=== PATIENT | female | born 1960 | race Caucasian/White ===

== ENCOUNTER → 2016-03-21 | Outpatient (CLI) | payer BC ==
--- OUTSIDE RECORDS SUMMARY | 2016-03-21 07:28 | XMS REPORT | Continuity of Care Document ---
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 If you do not see the information that you expected, contact Release of Information in the Health Information Management department at [phone] for further assistance in locating additional records.[facility] Active Allergies and Adverse Reactions Allergen Noted Date Severity Reactions Comments Codeine 09/14/2013 NAUSEA AND VOMITING Current Medications Prescription Sig. Disp. Refills Start End Date Status Date cyclobenzaprine Take 1 Tab by mouth at 10 Tab 0 09/15/19 Active (FLEXERIL) 10 mg tablet bedtime as needed for 14 Muscle Cramps. Active Problems No known active problems Social History Tobacco Use Types Packs/Day Years Used Date Never Smoker Last Filed Vital Signs Vital Sign Reading Time Taken Blood Pressure 110/60 09/14/2013 2:24 PM CDT Pulse 70 09/14/2013 2:24 PM CDT Temperature 36.8 C (98.3 F) 09/14/2013 2:24 PM CDT Respiratory Rate 18 09/14/2013 2:24 PM CDT Height 1.778 m (5' 10") 09/14/2013 2:24 PM CDT Weight 64.864 kg (143 lb) 09/14/2013 2:24 PM CDT Body Mass Index 20.52 09/14/2013 2:24 PM CDT Oxygen Saturation - - Plan of Care Health Maintenance Due Date Last Done Comments Physical (Comprehensive) 1969 Exam Pertussis Vaccine 1973 Tetanus Vaccine 1979 Cervical Cancer Screening 1983 Breast Cancer Screening 2002 Colorectal Cancer 2012 Screening Influenza Vaccine 10/22/2015 Results from Last 3 Months Not on file
--- NOTE | 2016-03-21 16:44 | Diagnostic Imaging Report ---
Bilateral screening mammogram. The current study was also evaluated with a Computer Aided Detection (CAD) system. INDICATION: Screening. No current complaints stated on the questionnaire. COMPARISON: 06/20/2014. FINDINGS: The breasts are composed of extremely dense parenchyma which may decrease mammographic sensitivity. No developing mass or suspicious cluster of calcification identified. Allowing for technique and positional differences, no suspicious change is seen. IMPRESSION: Dense breasts with no definite change. ACR BI-RADS Category 2: Benign findings. Result letter will be mailed to the patient. Note: At least 10% of breast cancer is not imaged by mammography. Dictated by: Dictated on workstation # [id number]
== END ==
LOC: RAD 07:25
PROVIDERS: ATTEND Obstetrics & Gynecology
DX: Z12.31 Encounter for screening mammogram for malignant neoplasm of breast (principal)

== ENCOUNTER → 2016-07-04 | Outpatient (CLI) | payer BC ==
--- NOTE | 2016-07-04 13:50 | Diagnostic Imaging Report ---
EXAMINATION: Three views of the right hand. INDICATION: Right hand and wrist pain. FINDINGS: No fracture, dislocation, or radiopaque foreign body seen. Joint alignment is satisfactory. No radiopaque foreign body. IMPRESSION: Unremarkable exam. Dictated by: Dictated on workstation # [id number]
--- NOTE | 2016-07-04 18:22 | Diagnostic Imaging Report ---
EXAMINATION: Three views of the right wrist. INDICATION: Pain and swelling. FINDINGS: There is no fracture, dislocation, or radiopaque foreign body. There is question of minimal widening of the scapholunate interval without significant subluxation or dislocation. No abnormal arthritic changes seen. 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 No fracture seen. Dictated by: Dictated on workstation # [id number]
== END ==
LOC: RAD 11:52
PROVIDERS: ATTEND Nurse Practitioner Family
DX: M79.641 Pain in right hand (principal); M25.531 Pain in right wrist; R22.31 Localized swelling, mass and lump, right upper limb; M25.431 Effusion, right wrist
CPT/HCPCS: 73110; 73130

== ENCOUNTER → 2017-05-18 | Outpatient (CLI) | payer BC ==
--- NOTE | 2017-05-18 10:38 | Diagnostic Imaging Report ---
INDICATION: Routine screening. COMPARISON: 03/21/2016 and 06/20/2014. TECHNIQUE: Screening digital mammography was performed bilaterally with a Computer Aided Detection (CAD) system. FINDINGS: Both breasts are heterogeneously dense, limiting the sensitivity of mammography. The parenchymal pattern is stable. No dominant mass or malignant appearing microcalcifications are seen. The axillae are unremarkable. IMPRESSION: No mammographic features suspicious for malignancy are identified. ACR BI-RADS Category 1: Negative. Result letter will be mailed to the patient. Note: At least 10% of breast cancer is not imaged by mammography. Dictated by: Dictated on workstation # [id number]
== END ==
LOC: RAD 07:17
PROVIDERS: ATTEND Obstetrics & Gynecology
DX: Z12.31 Encounter for screening mammogram for malignant neoplasm of breast (principal)
CPT/HCPCS: 77067

== ENCOUNTER → 2018-06-15 | Outpatient (CLI) | payer BC ==
--- NOTE | 2018-06-18 11:38 | Diagnostic Imaging Report ---
Indication: Screening. The current study was also evaluated with a Computer Aided Detection (CAD) system. 3-D tomosynthesis was also performed and reviewed. Comparison made with prior examination from 05/18/2017, 03/21/2016 and 06/20/2014. 3-D tomosynthesis was performed and reviewed. FINDINGS: The fibroglandular tissue is heterogeneously dense bilaterally. There is no dominant mass, spiculated lesion or suspicious calcification identified. The skin, nipples and axilla are unremarkable. Impression: Category one negative ACR BI-RADS Category 1: Negative. Result letter will be mailed to the patient. Note: At least 10% of breast cancer is not imaged by mammography. Dictated by: Dictated on workstation # [id number]
== END ==
LOC: RAD 12:52
PROVIDERS: ATTEND Obstetrics & Gynecology
DX: Z12.31 Encounter for screening mammogram for malignant neoplasm of breast (principal)
CPT/HCPCS: 77067

== ENCOUNTER → 2019-07-29 | Outpatient (CLI) | payer BC ==
--- NOTE | 2019-07-29 11:13 | Diagnostic Imaging Report ---
INDICATION: Routine screening. Comparison is made with prior mammogram 06/15/2018 and 05/18/2017. 2-D and 3-D bilateral screening mammography was performed with CAD. Both breasts remain heterogeneously dense, limiting the sensitivity of mammography. The parenchymal pattern is stable. No mass or malignant-appearing microcalcifications are seen. Axillae are unremarkable. IMPRESSION: BI-RADS Category 1. No mammographic features suspicious for malignancy are identified. ACR BI-RADS Category 1: Negative. Result letter will be mailed to the patient. Note: At least 10% of breast cancer is not imaged by mammography. Dictated by: Dictated on workstation # [id number]
== END ==
LOC: RAD 07:09
PROVIDERS: ATTEND Obstetrics & Gynecology
DX: Z12.31 Encounter for screening mammogram for malignant neoplasm of breast (principal)
CPT/HCPCS: 77063; 77067

== ENCOUNTER → 2020-07-29 | Outpatient (CLI) | payer BC ==
--- NOTE | 2020-07-29 10:08 | Diagnostic Imaging Report ---
EXAMINATION: Digital mammogram bilateral screening with CAD. INDICATION: Screening. COMPARISON: This study was compared to the prior exams of 07/29/2019, 06/15/2018, and 05/18/2017. PERSONAL HISTORY: At this time, there are no current complaints. FINDINGS: The fibroglandular tissue in both breasts is dense. This does limit the sensitivity of this exam. Overall, there does not appear to have been any significant change when compared to the prior study. No primary or secondary sign of malignancy is noted. IMPRESSION: There is no radiographic evidence for malignancy. ACR BI-RADS Category 1: Negative. Result letter will be mailed to the patient. Note: At least 10% of breast cancer is not imaged by mammography. Dictated by: Dictated on workstation # [id number]
== END ==
LOC: RAD 07:24
PROVIDERS: ATTEND Obstetrics & Gynecology
DX: Z12.31 Encounter for screening mammogram for malignant neoplasm of breast (principal)
CPT/HCPCS: 77063; 77067

== ENCOUNTER → 2020-11-10 | Outpatient (CLI) | payer BC ==
--- NOTE | 2020-11-10 08:54 | Diagnostic Imaging Report ---
INDICATION: Postmenopausal screening for osteoporosis COMPARISON: None FINDINGS: AP Spine L1-L4: [BMD (g/cm2): 0.713] [T-Score: -4.1] [Z-Score: -3.0] [BMD Previous: na] [BMD % Change: na] LT Hip Neck: [BMD (g/cm2): 0.641] [T-Score: -2.9] [Z-Score: -1.7] LT Hip Total: [BMD (g/cm2):0.629] [T-Score:-3.0] [Z-Score: -2.2] [BMD Previous: na] [BMD % Change: na] RT Hip Neck: [BMD (g/cm2):0.684] [T-Score:-2.5] [Z-Score:-1.4] RT Hip Total: [BMD (g/cm2):0.668] [T-score:-2.7] [Z-Score:-1.8] [BMD Previous:na] [BMD % Change:na] *Indicates significant change from prior examination based on 95% confidence level. World Health Organization criteria for BMD interpretation classify patients as Normal (T-score at or above -1.0), Osteopenic (T-score between -1.0 and -2.5) or Osteoporotic (T-score at or below -2.5). LIMITATIONS AND MODIFICATION: None. FRACTURE RISK (FRAX SCORE): The ten year probability of (%): Major Osteoporotic Fracture: [na] Hip Fracture: [na] IMPRESSION: 1. Osteoporosis. 2. Baseline examination. 3. See below National Osteoporosis Foundation guidelines on when to potentially initiate pharmacologic therapy. Based on the National Osteoporosis Foundation Guidelines, pharmacologic treatment should be initiated in any of the following, unless clinical conditions suggest otherwise: * Any patient with prior fragility fracture of the hip or vertebrae. A spine fracture indicates 5X risk for subsequent spine fracture and 2X risk for subsequent hip fracture. * Osteoporosis (T-score <-2.5). * Postmenopausal women and men age 50 and older with low bone mass/osteopenia (T-score between -1.0 and -2.5) by DXA and 10-year major osteoporotic fracture greater than 20% or a 10-year probability of hip fracture greater than 3%. These fracture risks are supplied above in the FRAX score, if applicable. * Clinician judgement and/or patient preferences may indicate treatment for people with 10-year fracture probabilities above or below these levels. Dictated by: Dictated on workstation # [id number]
== END ==
LOC: RAD 08:08
PROVIDERS: ATTEND Obstetrics & Gynecology
DX: Z13.820 Encounter for screening for osteoporosis (principal); M81.0 Age-related osteoporosis without current pathological fracture; E55.9 Vitamin D deficiency, unspecified; Z78.0 Asymptomatic menopausal state
CPT/HCPCS: 77080

== ENCOUNTER → 2021-09-23 | Outpatient (CLI) | payer BC ==
--- NOTE | 2021-09-23 09:05 | Diagnostic Imaging Report ---
INDICATION: Routine screening. Comparison is made with prior mammogram 07/29/2020 and 07/29/2019. 2-D and 3-D bilateral screening mammography was performed with CAD. Both breasts are heterogeneously dense, limiting the sensitivity of mammography. The parenchymal pattern is stable. No mass or malignant-appearing microcalcifications are seen. Axillae are unremarkable. IMPRESSION: No mammographic features suspicious for malignancy are identified. ACR BI-RADS Category 1: Negative. Result letter will be mailed to the patient. Note: At least 10% of breast cancer is not imaged by mammography. BI-RADS Category 1 Dictated by: Dictated on workstation # [id number]
== END ==
LOC: RAD 07:30
PROVIDERS: ATTEND Obstetrics & Gynecology
DX: Z12.31 Encounter for screening mammogram for malignant neoplasm of breast (principal)
CPT/HCPCS: 77063; 77067